=== PATIENT | male | born 1970 | race Caucasian/White ===

== ENCOUNTER 2016-09-30 13:31 | Day surgery (SDC) | payer MEDICAID ==
[~2016-09-30 13:31] MED LIST: ACIDOPHILUS-PE1 EAC1 PO; ADVAIR 100-501 EACH PO; ALBUTEROL INH; ATORVASTATIN CA80 M1 PO; BENZTROPINE ME0.5 M1 PO; CITROMA296 ML; COGENTIN PO; DOK PLUS TABLE1 EAC1 PO; FLOVENT DISKUS50 MCG INH; HALDOL5 MG/1 ML; HALOPERIDO100 MG/1 M IM; HALOPERIDOL10 M1 PO; IBUPROFEN200 M3 PO; LIPITOR40 M1 PO; LORATADINE10 M2 PO; NITROGLYCERIN0.4 M2 SL; PRILOSEC10 M2 PO; PROVENTIL HFA6.7 G1 INH; QUETIAPINE FUM200 M1 PO; RAMIPRIL2.5 M1 PO; RANITIDINE HCL150 M3 PO; SEROQUEL100 M2 PO; TUSSIN DM PO; TYLENOL EXTRA500 M1 PO; ULTRAM50 M1 PO; VENTOLIN HFA18 G2 PO; VITAMIN D32000 UNI3 PO; [UNRECOGNIZED DRUG - OTHER] PO; [UNRECOGNIZED DRUG - OTHER] PO
[2016-09-30 14:16] LABS: BASO % 1.3 % (0-2); BASO ABSOLUTE COUNT 0.1 tho/cmm (0.0-0.2); EOS % 3.2 % (0-7); EOSINOPHIL ABSOLUTE COUNT 0.3 tho/cmm (0.0-0.7); HCT-HEMATOCRIT 49.7 % (36.0-53.5); HGB-HEMOGLOBIN 16.7 gm/dl (13.5-17.0); IMMATURE GRANULOCYTES ABSOLUTE 0.05 tho/cmm (0-0.03); IMMATURE GRANULOCYTES PERCENT 0.5 % (0-0.3); LYMPH % 21.3 % (20-45); LYMPH ABSOLUTE COUNT 2.2 tho/cmm (0.8-4.5); MCH (MEAN CORPUSCULAR HGB) 27.6 pg (28.0-32.0); MCHC MEAN CORPUSCULAR HGB CONC 33.6 % (32.0-36.0); MCV (MEAN CELL VOLUME) 82.3 fl (82.0-96.0); MONO % 10.3 % (0-12); MONOCYTE ABSOLUTE COUNT 1.1 tho/cmm (0.0-1.2); NEUTROPHIL ABSOLUTE COUNT 6.5 tho/cmm (1.6-8.0); NEUTROPHIL-AUTOMATED 6.5 tho/cmm (1.6-8.0); NEUTROPHILS % 63.4 % (40-80); PLATELET COUNT 269 tho/cmm (150-450); RED BLOOD COUNT 6.04 mil/cmm (4.40-5.70); RED CELL DISTRIBUTION WIDTH 14.9 % (12.4-16.4); WHITE BLOOD COUNT 10.3 tho/cmm (4.0-10.0)
[2016-09-30 14:26] LABS: ANION GAP 13 mmol/L (0-20); BLOOD UREA NITROGEN 6 mg/dl (6-24); CALCIUM 8.7 mg/dl (8.5-10.5); CARBON DIOXIDE-VENOUS 27 mmol/L (22-32); CHLORIDE 104 mmol/l (96-110); CREATININE 0.88 mg/dl (0.60-1.30); GLUCOSE 102 mg/dL (70-110); POTASSIUM 3.8 mmol/L (3.7-5.1); SODIUM 140 mmol/L (135-145); eGFR VALUE FOR BLACK >90 mL/Min
[2016-12-15] MEDS ORDERED: FLONASE ALLERG9.9 ML (01:30)
== END 2016-09-30 15:53 ==
LOC: ENDOS 13:31 → SHSB 13:34 → ENDOS 14:25
PROVIDERS: Anesthesiology
PROC: 0DJ08ZZ Inspection of Upper Intestinal Tract, Via Natural or Artificial Opening Endoscopic (ICD-10-PCS; principal; 2016-09-30)
PROC: 0DJD8ZZ Inspection of Lower Intestinal Tract, Via Natural or Artificial Opening Endoscopic (ICD-10-PCS; 2016-09-30)
DX: K64.8 Other hemorrhoids (principal); K59.00 Constipation, unspecified; R12 Heartburn; F20.9 Schizophrenia, unspecified; Z80.0 Family history of malignant neoplasm of digestive organs; Z90.49 Acquired absence of other specified parts of digestive tract; F17.210 Nicotine dependence, cigarettes, uncomplicated; I10 Essential (primary) hypertension; E11.9 Type 2 diabetes mellitus without complications; F41.9 Anxiety disorder, unspecified; F32.9 Major depressive disorder, single episode, unspecified; Z79.899 Other long term (current) drug therapy